=== PATIENT | male | born 1965 ===

== ENCOUNTER 2021-08-04 22:29 | Observation (INO) ==
[2021-08-04 23:12] LABS: Basophils # 0.1 K/mcL (0.0-0.2); Basophils % 0.7 %; Eosinophils # 0.2 K/mcL (0.0-0.6); Eosinophils % 1.5 %; Hematocrit 37.4 % (37.5-50.1); Hemoglobin 12.8 g/dL (12.9-16.9); Immature Granulocytes % 0.6 % (0-4); Lymphocytes # 4.1 K/mcL (0.6-4.6); Lymphocytes % 36.5 %; Mean Corpuscular HGB Conc 34.2 g/dL (31.6-35.5); Mean Corpuscular Hemoglobin 32.7 pg (28.0-33.3); Mean Corpuscular Volume 95.4 fL (83.0-100.0); Mean Platelet Volume 9.1 fL (9.4-12.4); Monocytes # 0.6 K/mcL (0.0-1.3); Monocytes % 4.9 %; Neutrophils # 6.3 K/mcL (1.6-8.9); Platelet Count 238 K/mcL (140-400); Red Blood Count 3.92 M/mcL (4.19-5.50); Segmented Neutrophils % 55.8 %; White Blood Count 11.3 K/mcL (4.3-11.1)
[2021-08-04 23:27] LABS: BUN/Creatinine Ratio 10 (6-26); Blood Urea Nitrogen 13 mg/dL (6-20); Calcium 9.6 mg/dL (8.6-10.3); Carbon Dioxide 27 mEq/L (23-29); Chloride 103 mEq/L (98-107); Glucose 113 mg/dL (70-105); Osmolality,Calculated 285 (280-300); Potassium 3.3 mEq/L (3.5-5.1); Sodium 137 mEq/L (136-145); eGFR For African Americans > 60 (> 60); eGFR For Non-African Americans 58 (> 60)
[2021-08-04 23:29] LABS: Troponin I < 0.03 ng/mL (< 0.04)
[2021-08-04] MEDS ORDERED: Nitroglycerin 0.4 MG TAB.SUBL SL ONE (23:35)
[2021-08-05] MEDS ORDERED: Potassium Chloride Elixir 20 MEQ/15 ML UDC PO ONE ×2 (03:15→04:15)
[2021-08-05] MEDS ORDERED: Perflutren Lipid Microsphere 1.3 ML in 0.9 % Sodium Chloride 8.7 ML IVP PRN (03:43)
[2021-08-05] MEDS ORDERED: Naloxone 0.4 MG/ML INJ IVP PRN (03:45)
[2021-08-05] MEDS ORDERED: Ondansetron 4 MG/2 ML VIAL IVP PRN (03:45)
[2021-08-05] MEDS ORDERED: Melatonin 3 MG TABLET PO PRN (03:47)
[2021-08-05] MEDS ORDERED: Acetaminophen 325 MG TABLET PO PRN (04:00)
[2021-08-05] MEDS ORDERED: Morphine Sulfate 2 MG/ML SYRINGE IVP PRN (04:00)
[2021-08-05 05:09] LABS: Hematocrit 36.6 % (37.5-50.1); Hemoglobin 12.4 g/dL (12.9-16.9); Mean Corpuscular HGB Conc 33.9 g/dL (31.6-35.5); Mean Corpuscular Hemoglobin 32.6 pg (28.0-33.3); Mean Corpuscular Volume 96.3 fL (83.0-100.0); Mean Platelet Volume 9.5 fL (9.4-12.4); Platelet Count 243 K/mcL (140-400); White Blood Count 11.6 K/mcL (4.3-11.1)
[2021-08-05 05:19] LABS: INR 1.1; Prothrombin Time 12.2 Seconds (9.4-12.1)
[2021-08-05 05:22] LABS: Activated Partial Thrombo Time 31.7 Seconds (26.0-36.0)
[2021-08-05 05:23] LABS: % Iron Saturation 15 % (20-55); BUN/Creatinine Ratio 12 (6-26); Blood Urea Nitrogen 14 mg/dL (6-20); Calcium 9.6 mg/dL (8.6-10.3); Carbon Dioxide 26 mEq/L (23-29); Chloride 104 mEq/L (98-107); Chol/HDL Ratio 6.7 (0-4.9); Cholesterol 153 mg/dL (< 200); Glucose 89 mg/dL (70-105); HDL Cholesterol 23 mg/dL (40-59); Iron 46 mcg/dL (65-175); LDL Cholesterol,Calculated 85 mg/dL (< 100); Magnesium 1.9 mg/dL (1.6-2.6); Osmolality,Calculated 284 (280-300); Potassium 3.5 mEq/L (3.5-5.1); Sodium 137 mEq/L (136-145); Transferrin 226 mg/dL (203-362); Triglycerides 223 mg/dL (< 150); eGFR For African Americans > 60 (> 60); eGFR For Non-African Americans > 60 (> 60)
[2021-08-05 05:38] LABS: Ferritin 80 ng/mL (20-250)
[2021-08-05 05:39] LABS: Thyroid Stimulating Hormone 2.999 mcIU/mL (0.340-5.600)
[2021-08-05 05:42] LABS: Folate 2.3 ng/mL (3.0-16.0)
[2021-08-05] MEDS ORDERED: *HR* Heparin 5,000 UNIT/ML VIAL SQ SCH (06:00)
[2021-08-05] MEDS ORDERED: Regadenoson 0.4 MG/5 ML SYRINGE IVP ONE (06:26)
[2021-08-05] MEDS ORDERED: Cyanocobalamin (B-12) 1,000 MCG/ML VIAL SQ ONE (07:49)
[2021-08-05] MEDS ORDERED: Folic Acid 1 MG in 0.9 % Sodium Chloride 50 ML IVPB STA (07:49)
[2021-08-05] MEDS ORDERED: Isovue-370 500 ML BOTTLE IVP ONE (08:53)
[2021-08-05] MEDS ORDERED: Aspirin Enteric Coated 81 MG Tablet PO SCH (09:00)
[2021-08-05] MEDS ORDERED: Nitroglycerin 0.4 MG TAB.SUBL SL PRN (10:27)
[2021-08-05 12:57] VITALS: BP 112/67; PULSE 62; TEMP 98.3; O2SAT 93
== END 2021-08-05 14:12 | disposition home or self-care (01) ==
LOC: EMEROOARM 22:29 → 3BNU 22:29 → SUATTDRO 08-05 02:28 → 3BNU 08-05 03:04
PROVIDERS: ADMIT Student in an Organized Health Care Education/Training Program; ATTEND Internal Medicine